=== PATIENT | female | born 1985 | race Caucasian/White ===

== ENCOUNTER 2016-10-01 22:55 | Emergency (ER) | payer BC ==
[2016-10-01 23:09] VITALS: BP 116/72; PULSE 68; TEMP 98; BMI 25.9
--- NOTE | 2016-10-01 23:59 | PDOC ---
History of Present Illness - History of Present Illness Initial Comments: 10/02/16 00:30 Patient is a 31 year old female with significant medical hx of H. pylori and GERD who is presenting to the ED with four days of epigastric pain and nausea. Patient reports epigastric pain with radiation to her chest and around to her back. Her pain is aggravated immediately after eating, regardless of what she eats. The patient states denies eating any fatty, greasy foods. Patient reports some burping but denies any vomiting. She also endorses some suprapubic pain that began today. The patient has taken TUMS and omeprazole for her pain but denies any relief. Denies any fever, chills, diarrhea, black stools, excessive ibuprofen use, or past endoscopy. The patient endorses a similar episode of her symptoms in the past when she was 23 and was diagnosed with H. pylori. <Lore Son - Last Filed: 10/02/16 01:22> <Lenny García - Last Filed: 10/02/16 02:26> - General Chief Complaint: Pain Stated Complaint: PAIN Time Seen by Provider: 10/01/16 23:58 Past History <Lore Son - Last Filed: 10/02/16 01:22> - Past Medical History Asthma: No Cancer: No Cardiac Disorders: No Diabetes: No GI Disorders: Yes (gerd) HTN: No Seizures: No Thyroid Disease: No - Psycho/Social/Smoking Cessation Hx Anxiety: Yes Suicidal Ideation: No Smoking History: Never smoked Have you smoked in the past 12 months: No Information on smoking cessation initiated: No Hx Alcohol Use: No Drug/Substance Use Hx: No Substance Use Type: None Hx Substance Use Treatment: No <Lenny García - Last Filed: 10/02/16 02:26> - Past Medical History Allergies/Adverse Reactions: Allergies Allergy/AdvReac Type Severity Reaction Status Date / Time No Known Allergies Allergy Verified 10/01/16 23:09 Home Medications: Ambulatory Orders Ferrous Sulfate [Feosol] 1 tablet PO DAILY 03/01/16 Vit/Iron Fumarate/FA [ Tablet] 1 tablet PO DAILY 03/01/16 Oxycodone HCl/Acetaminophen [Percocet 5-325 mg Tablet] 1 - 2 tab PO Q4H #30 tablet MDD 12 03/14/16 Pantoprazole Sodium [Protonix] 40 mg PO DAILY #30 tablet. 10/02/16 Review of Systems - Review of Systems Comments:: 10/02/16 00:31 CONSTITUTIONAL: No fever, no chills, no fatigue EYES: No visual changes ENT: No ear pain, no sore throat CARDIOVASCULAR: No chest pain, no palpitations RESPIRATORY: No cough, no SOB GI: Epigastric pain, nausea. No vomiting, no constipation, no diarrhea GENITOURINARY: No dysuria, no frequency, no hematuria MUSKULOSKELETAL: No backpain, no joint pain, no myalgias SKIN: No rash NEURO: No headache <Lore Son - Last Filed: 10/02/16 01:22> *Physical Exam - Vital Signs Last Vital Signs Temp Pulse Resp BP Pulse Ox 98.0 F 68 18 116/72 100 10/01/16 23:06 10/01/16 23:06 10/01/16 23:06 10/01/16 23:06 10/01/16 23:06 - Physical Exam Comments: 10/02/16 00:39 CONSTITUTIONAL: Well-appearing; well-nourished; in no apparent distress HEAD: Normocephalic; atraumatic EYES: PERRL; EOM intact; Sclera non-icteric; Conjunctivae pink ENMT: External appears normal; normal oropharynx NECK: Supple; non-tender; no cervical lymphadenopathy CARD: Normal S1, S2; no murmurs, rubs, or gallops RESP: Normal chest excursion with respiration; breath sounds clear and equal bilaterally; no wheezes, rhonchi, or rales ABD: Soft, non-distended; mild epigastric discomfort; no palpable organomegaly, no palpable hernias EXT: Normal ROM in all four extremities; non-tender to palpation; distal pulses intact SKIN: Warm, dry, no rash NEURO: No focal neurological deficiencies. 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 Rule out stones. Findings: The pancreas is extruded by shadowing. The visualized parenchyma is unremarkable. The visualized aorta and proximal IVC are unremarkable. The liver has a normal appearance and echotexture measures 16 cm in length. The gallbladder is contracted but otherwise unremarkable. Hepatopetal flow is demonstrated in the main portal vein. The right kidney has a normal appearance and echotexture measures 10 cm in length. No parenchymal mass, shadowing calculus or hydronephrosis is seen. Impression: Limited pancreas. Normal appearance of the liver and right kidney. Contracted gallbladder otherwise unremarkable. THIS DOCUMENT HAS BEEN ELECTRONICALLY SIGNED Jeffrey Barakat M.D. 10/02/2016 01:19 WM Baxter Please call Imaging Senior Integration Developer [phone] ([phone]) with questions. End of Report Content <Lore Son - Last Filed: 10/02/16 01:22> - LABORATORY CBC & Chemistry Diagram: 10/02/16 00:29 10/02/16 00:29 <Lenny García - Last Filed: 10/02/16 02:26> Medical Decision Making - Medical Decision Making 10/02/16 01:45 Patient is a 31-year-old female with history of H. pylori infection in the past presents with atraumatic epigastric discomfort radiating to the chest and back, exacerbated immediately postprandially, not effectively controlled by over-the- counter Tums or omeprazole. In the ER, patient is awake and alert, nontoxic- appearing, with mild epigastric discomfort on deep palpation. CBC/CMP/lipase/UA within normal limit. Abdominal ultrasound shows no evidence of cholelithiasis or hepatomegaly or nephrolithiasis. Pancreas is not visualized lipase is noted to be within normal limit and I do not suspect acute pancreatitis. Acute gastritis or recurrent H. pylori infection is likely. pt amelie po. Will discharge with PPI therapy with GI follow-up possible EGD. <Lenny García - Last Filed: 10/02/16 02:26> *DC/Admit/Observation/Transfer - Attestations Scribe Attestion: 10/02/16 00:40 Documentation prepared by Lore Son, acting as certified medical technician assistant for Lenny García MD. <Lore Son - Last Filed: 10/02/16 01:22> - Attestations Physician Attestion: 10/02/16 01:45 The documentation was prepared by the scribe under my direct supervision. I have reviewed the documentation which correctly represents the findings, medical decision-making and critical action taken by me. <Lenny García - Last Filed: 10/02/16 02:26> Diagnosis at time of Disposition: Epigastric pain - Discharge Dispostion Disposition: HOME Condition at time of disposition: Stable - Referrals Referrals: Stephon Paulino MD [Staff Physician] - - Patient Instructions Printed Discharge Instructions: DI for Epigastric Pain
[2016-10-02] MEDS ORDERED: FAMOTIDINE 20 MG/50 ML IVPB 50 ML IVPB ONE ×2 (00:20→00:43)
[2016-10-02] MEDS ORDERED: SODIUM CHLORIDE 500 ML IV STA ×2 (00:20→02:07)
[2016-10-02] MEDS ORDERED: MAG HYDROX/AL HYDROX/SIMETH 355 ML ORAL.SUSP PO ONE (00:21)
[2016-10-02] MEDS ORDERED: MAG HYDROX/AL HYDROX/SIMETH 30 ML UNIT-DOSE CUP ONE (00:43)
[2016-10-02 00:51] LABS: BASOPHIL 0.5 % (0-2.0); EOSINOPHIL 6.1 % (0-4.5); MCH 29.6 pg (25.7-33.7); MCHC 33.1 g/dl (32.0-36.0); MEAN CELL VOLUME 89.5 fl (80-96); MEAN PLT VOLUME 8.3 fl (7.5-11.1); NEUTROPHILS 54.8 % (42.8-82.8); PLATELET COUNT 238 K/MM3 (134-434); RDW 14.3 % (11.6-15.6); WHITE BLOOD COUNT 9.4 K/mm3 (4.0-10.0)
[2016-10-02 01:06] LABS: URINE APPEARANCE CLEAR; URINE BILIRUBIN NEGATIVE (NEGATIVE); URINE BLOOD NEGATIVE (NEGATIVE); URINE COLOR LTYELLOW; URINE GLUCOSE (UA) NEGATIVE (NEGATIVE); URINE KETONE NEGATIVE (NEGATIVE); URINE LEUK ESTERASE NEGATIVE (NEGATIVE); URINE NITRITE NEGATIVE (NEGATIVE); URINE PROTEIN NEGATIVE (NEGATIVE); URINE UROBILINOGEN NEGATIVE E.U./dl (0.2-1.0)
[2016-10-02 01:15] LABS: ALBUMIN 3.2 g/dl (3.4-5.0); ALK PHOS 84 U/L (45-117); ANION GAP 9 (8-16); BILIRUBIN,TOTAL 0.4 mg/dL (0.2-1.0); CALCIUM 8.7 mg/dL (8.5-10.1); CO2 29 mmol/L (21-32); CREATININE 0.6 mg/dL (0.55-1.02); GLUCOSE,RANDOM 97 mg/dL (74-106); SGOT/AST 27 U/L (15-37); SGPT/ALT 34 U/L (12-78); TOT PROT 6.6 g/dl (6.4-8.2)
[2016-10-02] MEDS ORDERED: SUCRALFATE 1 GM TABLET (FP) PO ONE (01:20)
[2016-10-02] MEDS ORDERED: morphine CARPU-JECT 2 MG/1 ML DISP.SYRIN IVPUSH ONE (01:29)
[2016-10-02] MEDS ORDERED: SUCRALFATE 1 GM TABLET (FP) ONE (01:56)
[2016-10-02] MEDS ORDERED: morphine CARPU-JECT 2 MG/1 ML DISP.SYRIN ONE (01:56)
[2016-10-02] MEDS ORDERED: ONDANSETRON 4 MG/2 ML VIAL IVPUSH ONE (02:06)
[2016-10-02] MEDS ORDERED: ONDANSETRON 4 MG/2 ML VIAL ONE (02:07)
== END 2016-10-02 02:47 | disposition home or self-care (01) ==
LOC: SUPCPDRO 22:55 → JER 22:55
PROC: 3E033NZ Introduction of Analgesics, Hypnotics, Sedatives into Peripheral Vein, Percutaneous Approach (ICD-10-PCS; principal; 2016-10-01)
PROC: 3E033GC Introduction of Other Therapeutic Substance into Peripheral Vein, Percutaneous Approach (ICD-10-PCS; 2016-10-01)
PROC: 3E0337Z Introduction of Electrolytic and Water Balance Substance into Peripheral Vein, Percutaneous Approach (ICD-10-PCS; 2016-10-01)
DX: R10.13 Epigastric pain (principal)
CPT/HCPCS: 36415; 76705-TC; 80053; 81003; 83690; 84703; 85025; 87086; 99281-25